=== PATIENT | female | born 1950 | race Caucasian/White ===

== ENCOUNTER 2019-01-16 20:40 | Emergency (ER) | payer MEDICARE, OTHER ==
[~2019-01-16] VITALS: Ht 162.6 cm; Wt 117.9 kg
[~2019-01-16 20:40] MED LIST: ADULT LOW DOSE81 MG PO; ARIXTRA SQ; AUGMENTIN 875875 M1 PO; CELEBREX 200 M200 MG PO; FLAGYL500 MG PO; LEVOTHROID150 MCG PO; LEVOTHYROXIN0.025 M1 PG; NORCO 5-325 TA1 EACH PO; OXYCODONE HCL5 M1 PO; PROTONIX40 M2 PO; TOPROL XL50 MG PO; TRAMADOL 50 MG50 MG PO; VICODIN ES TAB1 EACH PO
[2019-01-16] MEDS ORDERED: KLOR-CON 1010 MEQ PO (20:56)
[2019-01-16] MEDS ORDERED: LIPITOR 20 MG T20 M1 PO (20:56)
[2019-01-16] MEDS ORDERED: ELIQUIS5 MG PO (20:57)
[2019-01-16] MEDS ORDERED: FLONASE 0.05%50 MCG NASAL (20:57)
[2019-01-16] MEDS ORDERED: TIKOSYN500 MCG PO (20:57)
[2019-01-16] MEDS ORDERED: LASIX 40 MG TAB40 M2 PO (20:57)
[2019-01-16] MEDS ORDERED: OMEPRAZOLE40 MG PO (20:58)
[2019-01-16] MEDS ORDERED: VITAMIN D1000 UNI1 PO (20:58)
[2019-01-16 22:42] LABS: ABSOLUTE BASOPHILS 0.1 thou/uL (0.0-0.2); ABSOLUTE EOSINOPHILS 0.2 thou/uL (0.0-0.7); ABSOLUTE LYMPHOCYTES 2.7 thou/uL (0.8-5.3); ABSOLUTE MONOCYTES 0.8 thou/uL (0.0-1.2); ABSOLUTE NEUTROPHILS 6.9 thou/uL (1.6-8.1); BASOPHILS 0.5 %; EOSINOPHILS 1.7 %; HEMATOCRIT 37.2 % (37.0-47.0); HEMOGLOBIN 12.2 gm/dL (12.0-15.0); LYMPHOCYTES 25.6 %; MCH 28.5 pg (26.0-34.0); MCHC 32.7 g/dL (28.0-37.0); MCV 87.1 fL (80.0-100.0); MONOCYTES 7.5 %; MPV 9.5 fl. (7.2-11.1); NUCLEATED RBCS 0 /100WBC; PLATELET COUNT* 209 thou/uL (150-400); POLYS 64.7 %; RBC 4.27 mil/uL (4.20-5.00); RDW-CV 14.5 % (10.5-14.5); WBC 10.7 thou/uL (4.0-11.0)
[2019-01-16 22:54] LABS: ANION GAP 11 mmol/L (7-16); BUN 17 mg/dL (7-18); CALCIUM 9.1 mg/dL (8.5-10.1); CHLORIDE 105 mmol/L (98-107); CO2 28 mmol/L (21-32); CREATININE 0.9 mg/dL (0.6-1.3); GLUCOSE 165 mg/dL (70-99); POTASSIUM 3.2 mmol/L (3.5-5.1); SODIUM 144 mmol/L (136-145)
[2019-01-16 23:05] LABS: ALKALINE PHOSPHATASE 150 U/L (46-116); NT-PRO BRAIN NAT PEPTIDE 89 pg/mL (<300); SGOT 14 U/L (15-37); SGPT 29 U/L (30-65); TOTAL BILIRUBIN 0.3 mg/dL (<0.1-1.0); TOTAL PROTEIN 7.5 g/dL (6.4-8.2); TROPONIN-I LEVEL <0.06 ng/mL (<0.06)
[2019-01-16] MEDS ORDERED: PROAIR HFA8.5 GM INH (23:15)
[2019-01-16] MEDS ORDERED: DOXYCYCLINE 10100 M1 PO (23:15)
[2019-01-16] MEDS ORDERED: PREDNISONE 20 M20 M1 PO (23:15)
[2019-01-16] MEDS ORDERED: TESSALON PERLE100 MG PO (23:15)
[2019-01-16 23:44] VITALS: BP 137/83
--- NOTE | 2019-01-19 16:45 | EKG ---
[place] [address] ELECTROCARDIOGRAM REPORT Name: FRANCES BARBER [id number] Admission: 01/16/19 Attend Phys: Discharge: 01/16/19 Date of : 54 Report #: [id number] THIS REPORT FOR: //name// [facility] ED Test Date: 2019-01-16 Test Time: 21:09:55 Pat Name: FRANCES HSUPKINS Department: Room: Gender: F Guard Chief: YUSRA : 1950 Requested By: Diamante Monroe Order Number: [id number] MD: Michael Syed Measurements Intervals [place] Rate: 79 P: 52 [place]: 128 QRS: 23 QRSD: 140 T: 9 QT: 420 QTc: 482 Interpretive Statements Sinus rhythm Right bundle branch block Compared to ECG 05/04/2010 03:52:38 Right bundle-branch block now present Atrial fibrillation no longer present ST (T wave) deviation no longer present Electronically Signed On 01-19-2019 16:45:14 CDT by Michael Syed [email or web address] <ELECTRONICALLY SIGNED> By: Michael Syed MD, [facility] 01/19/19 1645 08 08 Michael Syed MD, [facility] /EPI
== END 2019-01-16 23:44 | disposition home or self-care (01) ==
LOC: M.ERS 20:40
PROVIDERS: Nurse Practitioner Family
DX: J20.9 Acute bronchitis, unspecified (principal); K21.9 Gastro-esophageal reflux disease without esophagitis; I48.91 Unspecified atrial fibrillation; Z88.8 Allergy status to other drugs, medicaments and biological substances